=== PATIENT | male | born 1975 | race Caucasian/White ===

== ENCOUNTER 2016-04-06 15:51 | Emergency (ER) | payer SELFPAY ==
[2016-04-06] MEDS ORDERED: SODIUM CHLORIDE 0.9% 1,000 ML IV ONE (16:27)
[2016-04-06] MEDS ORDERED: KETOROLAC 60 MG/2 ML VIAL IM STA (16:27)
[2016-04-06] MEDS ORDERED: ONDANSETRON 4 MG/2 ML VIAL IVP STA (16:27)
[2016-04-06] MEDS ORDERED: KETOROLAC 30 MG/ML VIAL ONE (16:35)
[2016-04-06] MEDS ORDERED: ONDANSETRON 4 MG/2 ML VIAL ONE (16:35)
[2016-04-06] MEDS ORDERED: KETOROLAC 60 MG/2 ML VIAL IVP STA (16:36)
[2016-04-06] MEDS ORDERED: diphenhydrAMINE 25 MG CAPSULE PO STA (16:49)
== END 2016-04-06 16:50 | disposition left against medical advice (07) ==
DX: R51 Headache (principal); Z53.29 Procedure and treatment not carried out because of patient's decision for other reasons